=== PATIENT | female | born 1970 | race Caucasian/White ===

== ENCOUNTER 2018-12-02 02:24 | Emergency (ER) | payer SELFPAY ==
[~2018-12-02] VITALS: Ht 162.6 cm; Wt 82.0 kg
[2018-12-02] MEDS ORDERED: METHYLPREDNISOLONE SOD SUCC 125 MG/2 ML VIAL IV ONE (02:30)
[2018-12-02] MEDS ORDERED: DIPHENHYDRAMINE 50MG/ML VIAL IV ONE (02:30)
[2018-12-02] MEDS ORDERED: ONDANSETRON 4MG ODT PO ONE (03:00)
[2018-12-02] MEDS ORDERED: KETOROLAC 30MG/ML VIAL IV ONE (03:00)
[2018-12-02 05:31] VITALS: BP 110/61
== END 2018-12-02 05:31 | disposition home or self-care (01) ==
LOC: ER 02:24
DX: L50.0 Allergic urticaria (principal); M79.622 Pain in left upper arm; T50.B95A Adverse effect of other viral vaccines, initial encounter; Y92.018 Other place in single-family (private) house as the place of occurrence of the external cause
CPT/HCPCS: 96374; 96375; 99283; J1200; J1885; J2930; Q0162; Z7610